=== PATIENT | male | born 1980 ===

== ENCOUNTER → 2023-03-20 | Day surgery (SDC) | payer OTHER ==
[~2023-03-20] MED LIST: COLACE100 MG PO; NEURONTIN300 MG PO; PERCOCET 5-3251 EACH PO
== END | disposition home or self-care (01) ==
LOC: ADM 03-12 09:45 → CIR.AMB 06:07
PROVIDERS: ATTEND Surgery
DX: K64.1 Second degree hemorrhoids (principal); K62.89 Other specified diseases of anus and rectum; Z20.822 Contact with and (suspected) exposure to COVID-19